=== PATIENT | female | born 1980 | race Caucasian/White ===

== ENCOUNTER 2022-07-28 21:16 | Emergency (ER) | payer OTHER ==
[~2022-07-28] VITALS: Ht 170.2 cm; Wt 68.2 kg
[2022-07-28 21:22] VITALS: BP 147/80; TEMP 98.1
[2022-07-28 23:19] VITALS: PULSE 84
== END 2022-07-28 23:29 | disposition home or self-care (01) ==
LOC: COL.ER 21:16
DX: S20.211A Contusion of right front wall of thorax, initial encounter (principal); Z28.310 Unvaccinated for COVID-19; W01.0XXA Fall on same level from slipping, tripping and stumbling without subsequent striking against object, initial encounter; Y93.01 Activity, walking, marching and hiking